=== PATIENT | female | born 1955 | race Caucasian/White ===

== ENCOUNTER 2019-07-09 14:24 | Emergency (ER) | payer MEDICARE ==
[2019-07-09 14:35] VITALS: BP 216/130
[2019-07-09] MEDS ORDERED: predniSONE 20 MG TABLET PO STA (14:47)
[2019-07-09] MEDS ORDERED: MELOXICAM 7.5 MG TABLET PO STA (14:47)
--- NOTE | 2019-07-09 14:52 | ED Physician Documentation ---
History of Present Illness - Stated complaint Stated Complaint: L ANKLE PAIN - Chief complaint Chief Complaint: Ext Problem - History obtained from History obtained from: Patient - History of Present Illness Timing: Other (1 weeek) Pain level max: 6 Pain level now: 5 - Additonal information Additional information: Patient states that her R ankle was hurting and so she favored her ankle but putting weight on the L ankle and now it is swollen and painful to walk. No injury. No redness. No fever. No home meds. Review of Systems Constitutional: denies: Fever, Chills GI: denies: Vomiting, Diarrhea Skin: denies: Rash Musculoskeletal: denies: Neck pain, Back pain Neurologic: reports: Head injury. denies: Headache PD PAST MEDICAL HISTORY - Past Medical History Past Medical History: No - Past Surgical History Past Surgical History: No - Present Medications Home Medications: Ambulatory Orders Medication Instructions Recorded Confirmed Meloxicam [Mobic] 7.5 mg PO BID PRN #20 tablet 07/09/19 - Allergies Allergies/Adverse Reactions: Allergies Allergy/AdvReac Type Severity Reaction Status Date / Time No Known Drug Allergies Allergy Verified 07/09/19 14:35 - Living Situation Living Situation: reports: With family Living Arrangement: reports: At home - Social History Does the pt smoke?: No Does the pt have substance abuse?: No - Family History Family history: reports: Non contributory PD ED PE NORMAL - Vitals Vital signs reviewed: Yes - General General: Alert and oriented X 3, No acute distress, Well developed/nourished - HEENT HEENT: Moist mucous membranes - Neck Neck: Supple, no meningeal sign - Cardiac Cardiac: RRR, Strong equal pulses - Respiratory Respiratory: No respiratory distress, Clear bilaterally - Abdomen Abdomen: Soft, Non tender, Non distended - Derm Derm: Warm and dry - Extremities Extremities: Other (Right ankle is normal. Left ankle has mild swelling around the lateral malleolus. There is tenderness around the site as well. No tenderness over the calcaneus or the metatarsals. No proximal tenderness of the tibia or fibula. Neurovascular intact. Normal appearance of the skin. No ecchymosis. No erythema. Good range of motion of the ankle joint, though with pain. Neurovascular intact) - Neuro Neuro: Alert and oriented X 3 - Psych Psych: Normal mood, Normal affect Results - Vitals Vitals: Vital Signs - 24 hr 07/09/19 14:30 Temperature 37.1 C Heart Rate 87 Respiratory 16 Rate Blood Pressure 216/130 H O2 Saturation 98 Oxygen O2 Source Room air - Rads (name of study) L ankle xray Radiology: Prelim report reviewed, EMP read contemporaneously, See rad report (No acute abnormality, small effusion) PD MEDICAL DECISION MAKING - ED course Complexity details: reviewed results, re-evaluated patient, considered differential, d/w patient ED course: Patient presents to the emergency department looks like a small ankle effusion. Likely overuse injury from favoring the right ankle from its' injury. No evidence of infection. No evidence of septic joint. No evidence of gout. Place an ankle brace for comfort. Will place on anti-inflammatories for home. A dose of steroid given here. Patient counseled regarding signs and symptoms for which I believe and urgent re-evaluation would be necessary. Patient with good understanding of and agreement to plan and is comfortable going home at this time This document was made in part using voice recognition software. While efforts are made to proofread this document, sound alike and grammatical errors may occur. Departure - Departure Disposition: Home, Self Care Clinical Impression: Left ankle effusion Condition: Good Instructions: ED Effusion Knee Follow-Up: your,doctor in 1 week [Other] Prescriptions: Meloxicam [Mobic] 7.5 mg PO BID PRN #20 tablet PRN Reason: Pain Comments: Return if you worsen. You may bear weight as tolerated. This will improve with time, rest and elevation. Ice may help as well. The discharge instructions are specifically for the knee, but the treatment is similar for an ankle. The brace will help as well. Your blood pressure was elevated today on check in to the emergency department. This does not mean that you have hypertension, it is a common phenomenon to check into the emergency department and have elevated blood pressure. I recommend that you see your primary care physician within the week to have it rechecked when you're feeling better. Discharge Date/Time: 07/09/19 15:25
--- NOTE | 2019-07-09 15:07 | XRAY Report ---
Reason: L ankle pain, swelling Procedure Date: 07/09/2019 Accession Number: [id number] / [id number] Procedure: XR - Ankle 3 View LT CPT Code: Final Report FULL RESULT: EXAM: LEFT ANKLE RADIOGRAPHY EXAM DATE: 07/09/2019 02:55 PM. CLINICAL HISTORY: Left ankle pain, swelling. COMPARISON: None. TECHNIQUE: 3 views. FINDINGS: Bones: No acute fracture is demonstrated. There is ossification in the region of the distal Achilles tendon. Os trigonum and an os peroneum are noted. Joints: No dislocation or subluxation. Suspect small ankle joint effusion. Soft Tissues: Soft tissue swelling is present around the ankle, most prominent laterally. IMPRESSION: 1. No acute fracture or malalignment. 2. Suspect small ankle joint effusion. 3. Soft tissue swelling around the ankle, most prominent laterally. RADIA
== END 2019-07-09 15:25 | disposition home or self-care (01) ==
LOC: ED 14:24
DX: M25.472 Effusion, left ankle (principal)
CPT/HCPCS: 73610; 99283; A9270; J7512

== ENCOUNTER 2022-07-31 12:07 | Emergency (ER) | payer MEDICARE ==
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
[2022-07-31 13:54] VITALS: BP 205/120
[2022-07-31] MEDS ORDERED: CYCLOBENZAPRINE 10 MG TABLET PO STA (13:58)
[2022-07-31] MEDS ORDERED: LIDOCAINE PATCH 5% TOP STA (13:58)
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
== END 2022-07-31 14:20 | disposition home or self-care (01) ==
LOC: ED 12:07
DX: S46.912A Strain of unspecified muscle, fascia and tendon at shoulder and upper arm level, left arm, initial encounter (principal); V49.40XA Driver injured in collision with unspecified motor vehicles in traffic accident, initial encounter; R03.0 Elevated blood-pressure reading, without diagnosis of hypertension
CPT/HCPCS: 70450; 71045; 73030; 99283; 99284; A9270

== ENCOUNTER 2024-02-01 19:29 | Outpatient (CLI) | payer MEDICARE ==
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
== END 2024-02-01 19:30 | disposition home or self-care (01) ==
LOC: DI 19:29
PROVIDERS: ATTEND Physician Assistant
DX: R22.32 Localized swelling, mass and lump, left upper limb (principal)